=== PATIENT | female | born 1995 | race Caucasian/White ===

== ENCOUNTER 2018-05-11 07:42 | Emergency (ER) | payer OTHER ==
[~2018-05-11] VITALS: Ht 172.7 cm; Wt 70.0 kg
[2018-05-11 11:46] VITALS: BP 113/66
== END 2018-05-11 11:46 | disposition home or self-care (01) ==
LOC: ED 07:42
DX: S71.112A Laceration without foreign body, left thigh, initial encounter (principal); W10.8XXA Fall (on) (from) other stairs and steps, initial encounter; Y93.89 Activity, other specified; Y92.89 Other specified places as the place of occurrence of the external cause; Y99.8 Other external cause status
CPT/HCPCS: 90715; J2001